=== PATIENT | female | born 1980 | race Caucasian/White ===

== ENCOUNTER 2018-07-01 18:21 | Emergency (ER) | payer OTHER ==
[~2018-07-01] VITALS: Ht 162.6 cm; Wt 83.9 kg
[~2018-07-01 18:21] MED LIST: ONDA4ODT1 PO; TOP25 PO; TRAM50TA1 PO
[2018-07-01 18:28] VITALS: BP 122/88
--- NOTE | 2018-07-01 18:32 | NUR ---
PT AMBULATES TO LOBBY AT THIS TIME W/ STEADY GAIT AND VSS TO WAIT FOR A BED.
--- NOTE | 2018-07-01 19:13 | NUR ---
37 YO F BIB SELF W/ C/O RIGHT-SIDED HEADACHE X 5 DAYS AND COLD SYMPTOMS (SORE THROAT AND CONGESTION X TODAY). N/V X 1 WEEK. SKIN IS INTACT, PINK/WARM/DRY; AAOX4, PERRL, WITH EVEN AND STEADY GAIT; LUNGS CLEAR BL, BREATHING UNLABORED; HR EVEN AND REGULAR, BL PERIPHERAL PULSES PRESENT; BS ACTIVE X4, NO TENDERNESS TO PALPATION, NO HEPATOSPLENOMEGALLY PALPATED, RESONANT TO PERCUSSION; PT DENIES ANY FEVER, CP, SOB, OR COUGH AT THIS TIME; PT STATES 9/10 PAIN AT THIS TIME; VSS; PATIENT POSITIONED FOR COMFORT; HOB ELEVATED; BEDRAILS UP X2; BED DOWN. HX SPORADIC HEMAPLEGIC MIGRAINE DISORDER, HYPER PARATHYROIDISM RX TOPAMAX (NEEDS MED REFILL), TRAMADOL
--- NOTE | 2018-07-01 19:27 | NUR ---
PT IN BED, COMFORT NEEDS MET AT THIS TIME, PT AWAITING MD MCKEON. PT STATES SHE TOOK TYLENOL XS TODAY AT 2PM W/ NO RELIEF, PT USUALLY TAKES TOPAMAX AND TRAMADOL FOR PAIN RELIEF BUT HAS BEEN UNABLE TO FILL RX.
[2018-07-01] MEDS ORDERED: DEXAMETHASONE 10 MG/ML VIAL IVP ONE (21:50)
[2018-07-01] MEDS ORDERED: NACL 0.9% 1,000 ML IV ONE (21:50)
[2018-07-01] MEDS ORDERED: diphenhydrAMINE 50 MG/ML VIAL IVP ONE (21:50)
[2018-07-01] MEDS ORDERED: METOCLOPRAMIDE 10 MG/2 ML INJ VIAL IVP ONE ×2 (21:50→23:45)
[2018-07-01] MEDS ORDERED: KETOROLAC 30 MG/ML VIAL IVP ONE (21:50)
--- NOTE | 2018-07-01 23:43 | NUR ---
PT C/O CONTINUED PAIN, ER MD MADE AWARE.
[2018-07-01] MEDS ORDERED: MORPHINE SULFATE 10 MG/ML SYR IVP ONE (23:45)
[2018-07-02] MEDS ORDERED: MORPHINE SULFATE 4 MG/ML SYR ONE (00:16)
[2018-07-02] MEDS ORDERED: MORPHINE SULFATE 2 MG/ML SYR ONE (00:19)
--- NOTE | 2018-07-02 00:26 | NUR ---
Dr. Benavides evaluating patient at bedside.
--- NOTE | 2018-07-02 00:34 | NUR ---
PT STATES HER SON CAN GIVE HER A RIDE HOME.
[2018-07-02 02:16] VITALS: BP 113/61
--- NOTE | 2018-07-02 02:16 | NUR ---
Patient discharged with v/s stable. Written and verbal after care instructions given and explained. Patient alert, oriented and verbalized understanding of instructions. Ambulatory with steady gait. All questions addressed prior to discharge. ID band removed. Patient advised to follow up with PMD. Rx of TOPAMAX, REGLAN, AUGMENTIN, MUCINEX given. Patient educated on indication of medication including possible reaction and side effects. Opportunity to ask questions provided and answered.
== END 2018-07-02 02:16 | disposition home or self-care (01) ==
LOC: MED 18:21
DX: G43.409 Hemiplegic migraine, not intractable, without status migrainosus (principal); J32.9 Chronic sinusitis, unspecified; E21.3 Hyperparathyroidism, unspecified; Z85.850 Personal history of malignant neoplasm of thyroid; Z86.73 Personal history of transient ischemic attack (TIA), and cerebral infarction without residual deficits; Z88.8 Allergy status to other drugs, medicaments and biological substances; Z79.899 Other long term (current) drug therapy
CPT/HCPCS: 81025; 96374; 96375; 96376; 99285; J1100; J1200; J1885; J2270; J2765; J7030

== ENCOUNTER 2018-07-03 20:10 | Emergency (ER) | payer OTHER ==
[~2018-07-03] VITALS: Ht 162.6 cm; Wt 83.0 kg
[2018-07-03 20:17] VITALS: BP 142/83
[2018-07-03 21:16] VITALS: BP 138/82
== END 2018-07-03 21:17 | disposition home or self-care (01) ==
LOC: MED 20:10
DX: J02.9 Acute pharyngitis, unspecified (principal); J32.9 Chronic sinusitis, unspecified; G43.909 Migraine, unspecified, not intractable, without status migrainosus; Z85.850 Personal history of malignant neoplasm of thyroid; F17.200 Nicotine dependence, unspecified, uncomplicated; E21.3 Hyperparathyroidism, unspecified; Z86.73 Personal history of transient ischemic attack (TIA), and cerebral infarction without residual deficits; Z90.49 Acquired absence of other specified parts of digestive tract; Z88.8 Allergy status to other drugs, medicaments and biological substances; Z79.1 Long term (current) use of non-steroidal anti-inflammatories (NSAID)
CPT/HCPCS: 99281

== ENCOUNTER 2023-11-21 10:58 | Emergency (ER) | payer BC, OTHER ==
[~2023-11-21] VITALS: Ht 162.6 cm; Wt 86.2 kg
[~2023-11-21 10:58] MED LIST changes: +ONDA-188 PO; -ONDA4ODT1 PO; +TRAM-748 PO; -TRAM50TA1 PO
[2023-11-21 11:01] VITALS: BP 142/90; PULSE 87; RESP 15; TEMP 97.6; O2SAT 98
[2023-11-21] MEDS: KETOROLAC 30 MG/ML VIAL IM ONE (12:48)
[2023-11-21] MEDS: ACETAMINOPHEN EXTRA STRENGTH 500 MG TAB PO ONE (12:48)
[2023-11-21 13:31] LABS: FLU A ANTIGEN negative (NEGATIVE); FLU B ANTIGEN NEGATIVE (NEGATIVE)
[2023-11-21 13:41] VITALS: BP 135/82; PULSE 88; RESP 16; TEMP 98; O2SAT 98
== END 2023-11-21 13:41 | disposition home or self-care (01) ==
LOC: MED 10:58
DX: U07.1 COVID-19 (principal); E03.9 Hypothyroidism, unspecified; I10 Essential (primary) hypertension; Z79.899 Other long term (current) drug therapy
CPT/HCPCS: 71045; 87426; 87804; 93005; 96372; 99285; J1885